=== PATIENT | male | born 1935 | race Caucasian/White ===

== ENCOUNTER → 2017-05-31 | Day surgery (SDC) | payer OTHER ==
[~2017-05-31] MED LIST: ATOR80TA PO; BUPIVACAINE/EPINEPHRINE 0.25% PF 30 ML VIAL ONE; ECASA PO; LACTATED RINGER'S 1000 ML INJ 1,000 ML ONE; LISI-360 PO; MIDAZOLAM HCL 2 MG/2 ML VIAL ONE; OMEP20TA PO; PROPOFOL 200 MG/20 ML AMP IV ONE; TIZA4 PO; ceFAZolin INJ 1,000 MG VIAL ONE
--- NOTE | 2017-05-31 13:26 | TN ---
cc: ROBERT WALTERS DATE OF SURGERY 05/31/2017 PREOPERATIVE DIAGNOSIS 1. 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 2. Multiple (four) sebaceous cysts of the upper back and shoulder. POSTOPERATIVE DIAGNOSIS 1. 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 2. Multiple (four) sebaceous cysts of the upper back and shoulder. PROCEDURE 1. Excision of chronically infected wound from previous infected sebaceous cyst at the mid back. 2. Excision of noninfected sebaceous cysts of the upper back and shoulder x4. ATTENDING SURGEON Dr. Walters. BIOSTATISTICS MANAGER Staff. ANESTHESIA General and local anesthetic. ESTIMATED BLOOD LOSS Less than 10 cc. COMPLICATIONS None. FINDINGS Completely excised chronically infected sebaceous cyst and wound and abscess cavity from upper middle back. Four completely excised not acutely infected sebaceous or epidermal occlusion cysts from the left shoulder, left upper and mid back. INDICATION FOR PROCEDURE The patient is a 81-year-old male who was recently treated for a sebaceous cyst of his upper back. He underwent incision and drainage and antibiotic therapy for 2 weeks. This did heal, however, he had a chronically draining wound and discomfort in this area and was referred to surgery. After evaluation the patient had a chronically infected sebaceous cyst as well as four other areas of noninfected sebaceous cysts. These were recommended to be removed due to his history of infection. The risks, benefits and alternatives were discussed with the patient and he agreed to undergo the procedure. DETAILS OF PROCEDURE The patient was taken to the operating room at [facility], placed in a right lateral decubitus position, placed under anesthesia with LMA airway. The patient's back was prepped and draped in sterile fashion. A timeout was performed. We excised the noninfected sebaceous cysts first. Small elliptical approximately 2 cm incisions with a 15 blade scalpel were used to dissect through the skin and around the subcutaneous tissue completely removing the cyst wall at all areas. This was done in the four noninfected areas and passed off un-oriented for permanent processing. We had excellent hemostasis with Bovie electrocautery. All these sites were closed with either two or three vertical mattress 2-0 nylon sutures. We then turned our attention to the chronically infected wound that was approximately 2 cm x 2 cm. This was excised in an elliptical type fashion with an approximately 3.5 cm x 2 cm wound created. We dissected down with the Bovie electrocautery to the subcutaneous tissue completely excising the chronic scar tissue which likely contained the cyst wall. We again undermined the skin and down to the musculofascial layer of the middle of the back and completely excised this area. There was viable healthy [id number] skin and subcutaneous tissue in the wound. The excisional specimen was sent off for permanent processing. We then irrigated out this wound and got excellent hemostasis with Bovie electrocautery. We closed this with approximately five interrupted vertical mattress sutures using 2-0 nylon. We placed antibacterial ointment and sterile dressings at all wounds. The patient was discontinued from anesthesia and taken to the PACU in stable condition. The patient tolerated the procedure well. No apparent complications. All counts were correct. I was present and scrubbed for the entire procedure. MD AKILA Resendez/BT /11:51 AM /12:45 PM
== END | disposition home or self-care (01) ==
LOC: ESDC 07:18
PROVIDERS: ATTEND Surgery
DX: L72.0 Epidermal cyst (principal); L08.9 Local infection of the skin and subcutaneous tissue, unspecified
CPT/HCPCS: 00300; 11402; 11404; 88304; J0690; J2250; J3010; J7120; 88305